=== PATIENT | female | born 2000 | race Caucasian/White ===

== ENCOUNTER 2024-08-13 08:14 | Outpatient (CLI) | payer OTHER, SELFPAY | END 2024-08-13 08:15 | disposition home or self-care (01) | LOC: KYNREF 08:15 | PROVIDERS: PCP Nurse Practitioner Family; Visit Provider Nurse Practitioner Family | DX: R19.7 Diarrhea, unspecified (principal) | CPT/HCPCS: 87493 ==

== ENCOUNTER 2024-08-14 10:37 | Outpatient (CLI) | payer OTHER, MEDICAID, SELFPAY ==
[2024-08-14 17:48] LABS: C.Difficile Negative (Negative); CDIFFEPI 027 PRESUMPTIVE NEGATIVE (Negative)
== END 2024-08-14 10:38 | disposition home or self-care (01) ==
LOC: KYNREF 10:37
PROVIDERS: PCP Nurse Practitioner Family; Visit Provider Nurse Practitioner Family
DX: R19.7 Diarrhea, unspecified (principal); A04.72 Enterocolitis due to Clostridium difficile, not specified as recurrent
CPT/HCPCS: 87493